=== PATIENT | female | born 1930 | race Caucasian/White ===

== ENCOUNTER → 2017-06-30 | Outpatient (CLI) | payer MEDICARE, BC ==
[2017-06-30 16:42] LABS: MAGNESIUM 2.4 mg/dL (1.6-2.3)
[2017-07-02 14:50] LABS: ALBUMIN FRACTION 3.7 g/dL (2.6-4.5); ALBUMIN PERCENTAGE 49.6 % (48.7-61.8); ALPHA 1 FRACTION 0.4 g/dL (0.3-0.5); ALPHA 1 PERCENTAGE 4.8 % (3.4-8.3); ALPHA 2 PERCENTAGE 12.9 % (8.4-17.5); BETA 1 FRACTION 0.4 g/dL (0.4-0.6); BETA 1 PERCENTAGE 5.6 % (5.4-8.9); BETA 2 FRACTION 0.5 g/dL (0.2-0.5); BETA 2 PERCENTAGE 6.8 % (3.8-7.7); GAMMA FRACTION 1.5 g/dL (0.4-1.7); GAMMA PERCENTAGE 20.3 % (8.1-23.0); SERUM PROTEIN TOTAL 7.5 g/dL (6.0-7.6)
== END ==
LOC: COL.LAB 15:02
PROVIDERS: Psychiatry & Neurology Neurology
DX: Z01.89 Encounter for other specified special examinations (principal)

== ENCOUNTER 2017-09-14 20:46 | Observation (INO) | payer MEDICARE, BC ==
[~2017-09-14] VITALS: Ht 170.2 cm; Wt 66.6 kg
[2017-09-14 21:46] LABS: MEAN CELL VOLUME 94 fl (80.0-100.0); MEAN CORPUSCULAR HGB CONC 33 g/dl (33.0-37.0); MEAN PLATELET VOLUME 8.4 fl (7.4-10.4); PLATELET COUNT 585 K/mm3 (130-400); RED BLOOD COUNT 3.33 M/mm3 (4.10-5.30); REDCELL DISTRIBUTION WIDTH-CV 14.4 % (11.5-14.5)
[2017-09-14 21:47] LABS: INR 1.1 (0.8-3.0); PROTHROMBIN TIME 13.2 SECONDS (9.7-12.8)
[2017-09-14 21:52] LABS: HEMATOCRIT 31.4 % (37.0-47.0); HEMOGLOBIN 10.5 g/dl (12.5-16.0); MEAN CORPUSCULAR HEMOGLOBIN 32 pg (27.0-31.0)
[2017-09-14 21:55] LABS: ALANINE AMINOTRANSFERASE 24 U/L (9-52); ALBUMIN 3.2 gm/dL (3.5-5.0); ALKALINE PHOSPHATASE 136 U/L (50-136); ANION GAP 10 mmol/L (7-16); AST,SGOT 23 U/L (15-37); BILIRUBIN,TOTAL 0.2 mg/dL (0.0-1.0); BLOOD UREA NITROGEN 26 mg/dL (7-17); CALCIUM 8.5 mg/dL (8.4-10.2); CARBON DIOXIDE 23 mmol/L (22-30); CHLORIDE 103 mmol/L (98-107); CREATININE, serum 0.97 mg/dL (0.52-1.25); GLUCOSE 116 mg/dL (74-106); POTASSIUM 4.2 mmol/L (3.4-5.0); SODIUM 135 mmol/L (137-145); TOTAL PROTEIN 7.4 gm/dL (6.4-8.2)
[2017-09-14 22:08] LABS: TROPONIN-I < 0.012 ng/mL (0.000-0.034)
[2017-09-14 22:12] LABS: BAND 27 % (0-10); BASOPHIL 1 % (0-2); EOSINOPHIL 1 % (0-4); LYMPHOCYTE 14 % (20.0-51.0); METAMYELOCYTE 1 % (0-0); NEUTROPHILS 51 % (42.0-75.2); PLATELET ESTIMATE NORMAL (NORMAL)
[2017-09-14] MEDS ORDERED: CEPHALEXIN500 M1 PO (22:31)
[2017-09-14] MEDS ORDERED: MIRAPEX0.25 MG PO (22:33)
[2017-09-14] MEDS ORDERED: SYNTHROID0.075 MG/T PO ×2 (22:34)
[2017-09-14] MEDS ORDERED: SYNTHROID0.05 MG/TA PO (22:35)
[2017-09-14] MEDS ORDERED: VOLTAREN-XR100 MG PO (22:36)
[2017-09-14] MEDS ORDERED: ATIVAN 0.50.5 MG/TAB PO (22:36)
[2017-09-14 23:15] LABS: COLLECTION METHOD CLEAN CATCH
[2017-09-14 23:20] LABS: MUCOUS Present /lpf; PH 7 (5-8); SQUAMOUS EPITHELIAL None Seen /hpf; URINE APPEARANCE Hazy; URINE BACTERIA None Seen /hpf; URINE BILIRUBIN Negative (NEGATIVE); URINE BLOOD Negative (NEGATIVE); URINE COLOR Yellow; URINE GLUCOSE Negative (NEGATIVE); URINE KETONE Negative (NEGATIVE); URINE LEUKOCYTE ESTERASE Negative (NEGATIVE); URINE NITRATE Negative (NEGATIVE); URINE PROTEIN(semi-quant) Negative (NEGATIVE); URINE RBC 0-2 /hpf; URINE UROBILINOGEN Negative (NEGATIVE)
[2017-09-15] VITALS (8 sets, daily range): BP systolic 88–109; BP diastolic 32–54; PULSE 69–106; TEMP 98.1–99.8
[2017-09-15 06:50] LABS: BASO # 0.1 (0.0-0.2); BASO % 0.4 % (0.0-2.0); EOS # 0.1 (0.0-0.7); EOS % 0.7 % (0-4.0); GRAN # 7.9 (1.4-6.5); GRAN % 62.2 % (42.2-75.2); LYMPH # 3.2 (1.2-3.4); LYMPH % 25.5 % (20.0-51.0); MEAN CELL VOLUME 97 fl (80.0-100.0); MEAN CORPUSCULAR HGB CONC 32 g/dl (33.0-37.0); MEAN PLATELET VOLUME 8.5 fl (7.4-10.4); MONO # 1.3 (0.1-0.6); MONO % 10.6 % (1.7-9.3); PLATELET COUNT 546 K/mm3 (130-400); RED BLOOD COUNT 2.93 M/mm3 (4.10-5.30); REDCELL DISTRIBUTION WIDTH-CV 14.6 % (11.5-14.5)
[2017-09-15 06:56] LABS: HEMATOCRIT 28.3 % (37.0-47.0); MEAN CORPUSCULAR HEMOGLOBIN 31 pg (27.0-31.0)
[2017-09-15 07:05] LABS: CALCIUM 7.9 mg/dL (8.4-10.2); CREATININE, serum 0.94 mg/dL (0.52-1.25); POTASSIUM 4.1 mmol/L (3.4-5.0)
[2017-09-16 00:25] VITALS: BP 95/51; PULSE 81; TEMP 98.2
[2017-09-16 03:54] VITALS: BP 112/45; PULSE 79; TEMP 98.3
[2017-09-16 07:06] LABS: BASO # 0.1 (0.0-0.2); BASO % 0.6 % (0.0-2.0); EOS # 0.5 (0.0-0.7); EOS % 5.9 % (0-4.0); GRAN # 3.3 (1.4-6.5); GRAN % 36.7 % (42.2-75.2); LYMPH % 44.9 % (20.0-51.0); MEAN CELL VOLUME 96 fl (80.0-100.0); MEAN CORPUSCULAR HGB CONC 32 g/dl (33.0-37.0); MEAN PLATELET VOLUME 8.7 fl (7.4-10.4); MONO % 11.3 % (1.7-9.3); PLATELET COUNT 524 K/mm3 (130-400); RED BLOOD COUNT 2.78 M/mm3 (4.10-5.30); REDCELL DISTRIBUTION WIDTH-CV 14.9 % (11.5-14.5)
[2017-09-16 07:19] LABS: CALCIUM 7.8 mg/dL (8.4-10.2); CREATININE, serum 0.95 mg/dL (0.52-1.25); POTASSIUM 3.7 mmol/L (3.4-5.0)
[2017-09-16 07:23] LABS: HEMATOCRIT 26.8 % (37.0-47.0); HEMOGLOBIN 8.5 g/dl (12.5-16.0); MEAN CORPUSCULAR HEMOGLOBIN 31 pg (27.0-31.0)
[2017-09-16 07:52] VITALS: BP 104/47; PULSE 74; TEMP 98.1
[2017-09-16 08:05] VITALS: BP 104/39; PULSE 79; TEMP 98.1
[2017-09-16 08:09] VITALS: BP 104/51; PULSE 79; TEMP 98.1
[2017-09-16] MEDS ORDERED: FLAGYL500 MG PO (10:03)
[2017-09-16] MEDS ORDERED: CIPRO 500MG TA500 MG PO (10:03)
[2017-09-16 11:35] VITALS: BP 108/47; PULSE 79; TEMP 98.1
== END 2017-09-16 13:28 | disposition home or self-care (01) ==
LOC: COL.ER 20:46 → MEDICAL 22:38
PROVIDERS: Emergency Medicine; Nurse Practitioner; Nurse Practitioner Family
DX: K52.9 Noninfective gastroenteritis and colitis, unspecified (principal); R06.02 Shortness of breath; R53.81 Other malaise; I31.3 Pericardial effusion (noninflammatory); I08.1 Rheumatic disorders of both mitral and tricuspid valves; E03.9 Hypothyroidism, unspecified; K86.89 Other specified diseases of pancreas; F41.9 Anxiety disorder, unspecified; Z90.710 Acquired absence of both cervix and uterus; Z82.49 Family history of ischemic heart disease and other diseases of the circulatory system; Z88.1 Allergy status to other antibiotic agents
CPT/HCPCS: G0378; G8978-GP; G8979-GP; G8987-GO; G8988-GO; J1200; J1650; J2543; J7030; J7040; J7050; Q9967

== ENCOUNTER 2017-09-30 22:54 | Emergency (ER) | payer MEDICARE, BC ==
[~2017-09-30] VITALS: Ht 170.2 cm; Wt 66.4 kg
[~2017-09-30 22:54] MED LIST: ATIVAN 0.50.5 MG/TAB PO; CEPHALEXIN500 M1 PO; CIPRO 500MG TA500 MG PO; FLAGYL500 MG PO; MIRAPEX0.25 MG PO; SYNTHROID0.05 MG/TA PO; SYNTHROID0.075 MG/T PO; VOLTAREN-XR100 MG PO
[2017-09-30 22:58] VITALS: TEMP 98.4
[2017-09-30 23:26] LABS: MEAN CELL VOLUME 96 fl (80.0-100.0); MEAN CORPUSCULAR HGB CONC 33 g/dl (33.0-37.0); MEAN PLATELET VOLUME 9.6 fl (7.4-10.4); PLATELET COUNT 413 K/mm3 (130-400); RED BLOOD COUNT 3.36 M/mm3 (4.10-5.30); REDCELL DISTRIBUTION WIDTH-CV 16.9 % (11.5-14.5)
[2017-09-30 23:30] LABS: HEMATOCRIT 32.3 % (37.0-47.0); HEMOGLOBIN 10.6 g/dl (12.5-16.0); MEAN CORPUSCULAR HEMOGLOBIN 32 pg (27.0-31.0)
[2017-09-30 23:32] LABS: PROTHROMBIN TIME 11.3 SECONDS (9.7-12.8)
[2017-09-30 23:35] LABS: PARTIAL THROMBOPLASTIN TIME 18.4 SECONDS (26.0-37.0)
[2017-09-30 23:38] LABS: BAND 35 % (0-10); LYMPHOCYTE 8 % (20.0-51.0); NEUTROPHILS 44 % (42.0-75.2); PLATELET ESTIMATE NORMAL (NORMAL)
[2017-09-30 23:44] LABS: ALANINE AMINOTRANSFERASE 29 U/L (9-52); ALBUMIN 3.2 gm/dL (3.5-5.0); ALKALINE PHOSPHATASE 64 U/L (50-136); ANION GAP 10 mmol/L (7-16); AST,SGOT 28 U/L (15-37); BILIRUBIN,TOTAL 0.9 mg/dL (0.0-1.0); BLOOD UREA NITROGEN 27 mg/dL (7-17); CALCIUM 8.7 mg/dL (8.4-10.2); CARBON DIOXIDE 22 mmol/L (22-30); CHLORIDE 104 mmol/L (98-107); CREATININE, serum 1.13 mg/dL (0.52-1.25); GLUCOSE 113 mg/dL (74-106); LIPASE 424 U/L (23-300); MAGNESIUM 1.8 mg/dL (1.6-2.3); PHOSPHOROUS 2.8 mg/dL (2.5-4.5); POTASSIUM 4.5 mmol/L (3.4-5.0); SODIUM 136 mmol/L (137-145); TOTAL PROTEIN 6.7 gm/dL (6.4-8.2)
[2017-09-30 23:54] LABS: TROPONIN-I < 0.012 ng/mL (0.000-0.034)
[2017-09-30 23:58] LABS: COLLECTION METHOD CATHETER
[2017-10-01 00:05] LABS: C-REACTIVE PROTEIN 4.9 mg/dL (0.0-0.9)
[2017-10-01 00:08] LABS: HYALINE CAST >12 /lpf; MUCOUS Present /lpf; PH 5 (5-8); SQUAMOUS EPITHELIAL 0-2 /hpf; URINE APPEARANCE Hazy; URINE BACTERIA None Seen /hpf; URINE BILIRUBIN Negative (NEGATIVE); URINE BLOOD Negative (NEGATIVE); URINE COLOR Amber; URINE GLUCOSE Negative (NEGATIVE); URINE KETONE Trace (NEGATIVE); URINE LEUKOCYTE ESTERASE Negative (NEGATIVE); URINE NITRATE Negative (NEGATIVE); URINE PROTEIN(semi-quant) 1+ (NEGATIVE); URINE UROBILINOGEN Negative (NEGATIVE)
[2017-10-01 03:25] VITALS: BP 99/51; PULSE 106
== END 2017-10-01 03:20 | disposition short-term general hospital (02) ==
LOC: COL.ER 22:54
PROVIDERS: Emergency Medicine
DX: A41.9 Sepsis, unspecified organism (principal); E87.2 Acidosis; R55 Syncope and collapse; R19.7 Diarrhea, unspecified; F41.9 Anxiety disorder, unspecified; E03.9 Hypothyroidism, unspecified; G62.9 Polyneuropathy, unspecified
CPT/HCPCS: J2543; J7030; J7060; Q9967

== ENCOUNTER → 2017-10-20 | Outpatient (CLI) | payer MEDICARE, BC | LOC: COL.VAS 11:15 | DX: I31.3 Pericardial effusion (noninflammatory) (principal) ==